=== PATIENT | female | born 1985 | race African-American/Black ===

== ENCOUNTER 2016-07-24 18:07 | Emergency (ER) | payer OTHER ==
[~2016-07-24] VITALS: Ht 165.1 cm; Wt 56.7 kg
[2016-07-24] MEDS ORDERED: IV NORMAL SALINE 1000ML BAG 1,000 ML IV SCH (18:19)
[2016-07-24] MEDS ORDERED: 0.9 % SODIUM CHLORIDE 10 ML DISP.SYRIN. IV PRN (18:30)
--- NOTE | 2016-07-24 18:32 | PHYS DOC ---
Past Medical History Past Medical History: Other Additional Past Medical Histor: PLEURISY Past Surgical History: No Surgical History Alcohol Use: None Drug Use: Marijuana Adult General Chief Complaint Chief Complaint: CHEST WALL PAIN HPI HPI Patient is a pleasant 31-year-old female with a remote history of pleurisy about 6 or 7 years ago who presents with chest pain that began earlier this morning. Pain is described as a sharp stabbing center of her chest over her xiphoid process readying to the center of his manubrium chest pain is worse with lifting moving her chest wall and moving her arms. Described as a sharp with no radiation to her back and shoulders or neck. Patient denies any shortness of breath, cough, URI symptoms, direct trauma, nausea, vomiting, diarrhea, fevers, chills, recent travel or trauma. Patient took some ibuprofen today which makes it somewhat better but not improved anxiety. She was advised to have an evaluation at the emergency department given the duration of symptoms. Review of Systems Review of Systems Constitutional: Denies fever or chills [] Eyes: Denies change in visual acuity, redness, or eye pain [] HENT: Denies nasal congestion or sore throat [] Respiratory: Patient truly denies shortness of breath other than when her chest wall hurts and she has to rest her bleeding secondary to the pain. Cardiovascular: No additional information not addressed in HPI [] GI: Denies abdominal pain, nausea, vomiting, bloody stools or diarrhea [] : Denies dysuria or hematuria [] Musculoskeletal: Denies back pain or joint pain [] Integument: Denies rash or skin lesions [] Neurologic: Denies headache, focal weakness or sensory changes [] Endocrine: Denies polyuria or polydipsia [] Current Medications Current Medications Current Medications Medications (Trade) Dose Ordered Sig/Sri Start Time Stop Time Status Last Admin Dose Admin Aspirin 324 mg 324 mg 1X ONCE 07/24/16 19:00 07/24/16 19:01 DC 07/24/16 18:48 324 MG Ketorolac Tromethamine (Toradol) 30 mg 1X ONCE 07/24/16 19:00 07/24/16 19:01 DC 07/24/16 18:51 30 MG Sodium Chloride (Iv Sodium Chloride 0.9% 1000ml Bag) 1,000 ml @ 1,000 mls/hr Q1H 07/24/16 18:19 07/24/16 19:18 DC 07/24/16 18:51 1,000 MLS/HR Sodium Chloride (Normal Saline Flush) 10 ml QSHIFT PRN 07/24/16 18:30 Allergies Allergies Allergies Coded Allergies Type Severity Reaction Last Updated Verified Sulfa (Sulfonamide Antibiotics) Allergy Intermediate Unknown 05/10/15 Yes Physical Exam Physical Exam Constitutional: Well developed, well nourished, no acute distress, non-toxic appearance. [] HENT: Normocephalic, atraumatic, bilateral external ears normal, oropharynx moist, no oral exudates, nose normal. [] Eyes: PERRLA, EOMI, conjunctiva normal, no discharge. [] Neck: Normal range of motion, no tenderness, supple, no stridor. [] Cardiovascular:Heart rate regular rhythm, no murmur [] Lungs & Thorax: Bilateral breath sounds clear to auscultation bilateral no wheezes rhonchi rales or crackles. Patient has easily reproducible chest wall pain over the sternum and xiphoid process exactly reproduce her symptoms. She has pain with rotational motion of her shoulder at the left more than the right. No evidence of skin wall changes no contusions, no rash. Abdomen: Bowel sounds normal, soft, no tenderness, no masses, no pulsatile masses. [] Skin: Warm, dry, no erythema, no rash. [] Back: No tenderness, no CVA tenderness. [] Extremities: No tenderness, no cyanosis, no clubbing, ROM intact, no edema. [] Neurologic: Alert and oriented X 3, normal motor function, normal sensory function, no focal deficits noted. [] Psychologic: Affect normal, judgement normal, mood normal. [] Current Patient Data Vital Signs Vital Signs Date Time Temp Pulse Resp B/P Pulse Ox O2 Delivery O2 Flow Rate FiO2 07/24/16 18:11 99 83 18 137/83 99 Room Air 99.0 Lab Values Laboratory Tests Test 07/24/16 17:39 07/24/16 18:49 POC Urine HCG, Qualitative Hcg negative (Negative) White Blood Count 12.1x10^3/uL (4.0-11.0) H Red Blood Count 4.48x10^6/uL (3.50-5.40) Hemoglobin 13.3g/dL (12.0-15.5) Hematocrit 40.3% (36.0-47.0) Mean Corpuscular Volume 90fL (79-100) Mean Corpuscular Hemoglobin 30pg (25-35) Mean Corpuscular Hemoglobin Concent 33g/dL (31-37) Red Cell Distribution Width 13.0% (11.5-14.5) Platelet Count 287x10^3/uL (140-400) Neutrophils (%) (Auto) 65% (31-73) Lymphocytes (%) (Auto) 22% (24-48) L Monocytes (%) (Auto) 10% (0-9) H Eosinophils (%) (Auto) 2% (0-3) Basophils (%) (Auto) 0% (0-3) Neutrophils # (Auto) 7.8x10^3uL (1.8-7.7) H Lymphocytes # (Auto) 2.7x10^3/uL (1.0-4.8) Monocytes # (Auto) 1.2x10^3/uL (0.0-1.1) H Eosinophils # (Auto) 0.3x10^3/uL (0.0-0.7) Basophils # (Auto) 0.0x10^3/uL (0.0-0.2) Prothrombin Time 12.6SEC (11.7-14.0) Prothrombin Time INR 1.0 (0.8-1.1) D-Dimer (Nola) 0.27ug/mlFEU (0.00-0.50) Sodium Level 136mmol/L (136-145) Potassium Level 3.9mmol/L (3.5-5.1) Chloride Level 103mmol/L (98-107) Carbon Dioxide Level 27mmol/L (21-32) Anion Gap 6 (6-14) Blood Urea Nitrogen 11mg/dL (7-20) Creatinine 0.7mg/dL (0.6-1.0) Estimated GFR (Cockcroft-Gault) 118.9 Glucose Level 91mg/dL (70-99) Calcium Level 9.1mg/dL (8.5-10.1) Creatine Kinase 94U/L (26-192) Creatine Kinase MB (Mass) < 0.5ng/mL (0.0-3.6) Creatine Kinase MB Relative Index 0.5% (0-4) Troponin I Quantitative < 0.017ng/mL (0.000-0.055) NG-Hfj-T-Type Natriuretic Peptide < 5pg/mL (0-124) Lipase 59U/L (73-393) L Laboratory Tests 07/24/16 18:49 Laboratory Tests 07/24/16 18:49 EKG EKG [EKG time 1618 p.m. 07/24/2016 shows normal sinus rhythm normal NJ interval and normal P wave number QRS normal ST segment, T-wave normal-looking EKG.] Radiology/Procedures Radiology/Procedures [Patient is x-ray dated 52 05/01/16 time 1841 normal cardiac shadow no acute pulmonary infiltrates lungs are inflated there is no soda Medicare there is no pleural effusions noted no pneumothorax subcutaneousair bony inferences and normal soft tissue and normal as well.] Course & Med Decision Making Course & Med Decision Making Pertinent Labs and Imaging studies reviewed. (See chart for details) [Patient presents with chest wall pain very reminiscent of her prior expensive pleurisy but her shortness of breath is low but more discomforting than normal. She has no risk factors for pulmonary embolism PERC negative but she does have some recent travel less than 6 hours in a vehicle. Differential diagnosis includes but is not entirely inclusive acute coronary syndrome, pulmonary medicine, pericardial effusion, pericardial tampon, mediastinitis, pneumothorax, ] Urine hCG was negative, patient's elevated white blood cell count of 12.1 and is really given duration of symptoms is blood cell count acute stress reaction to pain. Otherwise normal Pleuritis is an inflammation of the lung pleura and causes pleuritic chest pain. Causes include autoimmune diseases (eg, systemic lupus erythematosus) and drugs (eg, procainamide, hydralazine, isoniazid). Associated systemic signs and symptoms of autoimmune disease include fever, rash, arthralgias, and constitutional symptoms. She did not suffer any of these other symptoms,. Discussed ways to treat pleurisy to follow-up in the future. Dragon Disclaimer Dragon Disclaimer This electronic medical record was generated, in whole or in part, using a voice recognition dictation system. Departure Departure Impression: Primary Impression: Pleurisy Disposition: 01 HOME, SELF-CARE Condition: IMPROVED Referrals: UNKNOWN PCP NAME (PCP) Patient Instructions: Chest Pain (Nonspecific), Pleurisy Additional Instructions: You have been diagnosed with chest pain and pleurisy although there is no evidence of damage to her heart at this time this does not mean he did not have heart disease. Please return for any new or increasing symptoms or Any questions or concerns. I would advise a follow-up with your regular Dr. for outpatient evaluation if symptoms continue I would also discouraged the use of marijuana until you're seen. Scripts Naproxen Sodium 550 Mg [id number] Mg PO BID PRN PAIN #20 TAB Prov:TRINITY NICHOLS MD 07/24/16 TRINITY NICHOLS MD July 24, 2016 18:32
[2016-07-24] MEDS ORDERED: ASPIRIN CHEWABLE 81 MG TABLET. PO ONE (19:00)
[2016-07-24] MEDS ORDERED: KETOROLAC TROMETHAMINE 30 MG/ML INJ. IV ONE (19:00)
[2016-07-24 19:01] LABS: BASO % 0 % (0-3); EOS % 2 % (0-3); HEMATOCRIT 40.3 % (36.0-47.0); HEMOGLOBIN 13.3 g/dL (12.0-15.5); LYMPH # 2.7 x10^3/uL (1.0-4.8); LYMPH % 22 % (24-48); MEAN CORPUSCULAR HEMOGLOBIN 30 pg (25-35); MEAN CORPUSCULAR HGB CONC 33 g/dL (31-37); MEAN CORPUSCULAR VOLUME 90 fL (79-100); MONO % 10 % (0-9); NEUT % 65 % (31-73); PLATELET COUNT 287 x10^3/uL (140-400); RED BLOOD COUNT 4.48 x10^6/uL (3.50-5.40); WHITE BLOOD COUNT 12.1 x10^3/uL (4.0-11.0)
[2016-07-24 19:09] LABS: PROTHROMBIN TIME PATIENT 12.6 SEC (11.7-14.0)
[2016-07-24 19:12] LABS: CALCIUM 9.1 mg/dL (8.5-10.1); CREATININE 0.7 mg/dL (0.6-1.0); GFR 118.9; POTASSIUM 3.9 mmol/L (3.5-5.1)
[2016-07-24 19:25] LABS: CREATINE KINASE 94 U/L (26-192)
[2016-07-24 19:26] LABS: CKMB MASS < 0.5 ng/mL (0.0-3.6)
[2016-07-24 19:32] VITALS: BP 118/68
[2016-07-24] MEDS ORDERED: NAPR550T3 PO (19:45)
--- NOTE | 2016-07-25 06:50 | EKG ---
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
--- NOTE | 2016-07-25 08:13 | RAD ---
Indication chest pain. PA and lateral views of the chest were obtained. No prior imaging of the chest is available. The heart, pulmonary vessels and mediastinum appear normal. The lungs are clear. Bony structures appear grossly intact. IMPRESSION: Normal study
== END 2016-07-24 19:56 | disposition home or self-care (01) ==
LOC: ER 18:07
DX: R09.1 Pleurisy (principal); F12.10 Cannabis abuse, uncomplicated; Z88.2 Allergy status to sulfonamides
CPT/HCPCS: 36415; 71020; 80048; 82550; 82553; 83690; 83880; 84484; 84703; 85027; 85379; 85610; 93005; 96361; 96374; 99285; J1885; J7030; 81025

== ENCOUNTER 2019-10-31 07:23 | Emergency (ER) | payer OTHER ==
[~2019-10-31] VITALS: Ht 162.6 cm; Wt 60.0 kg
[~2019-10-31 07:23] MED LIST: NAPR-677 PO
--- NOTE | 2019-10-31 07:57 | PHYS DOC ---
Past Medical History Past Medical History: Asthma, Bronchitis, Other Additional Past Medical Histor: PLEURISY Past Surgical History: No Surgical History Smoking Status: Light Tobacco Smoker Alcohol Use: None Drug Use: Marijuana General Adult EDM: Chief Complaint: CHEST WALL PAIN HPI: HPI: Patient is a 34 year old female who presents with 3-week history of right-sided pleuritic chest pain pain is moderate in intensity and worse with deep breaths. Patient has some mild shortness of breath due to the pain. Pain is located on the right side of her chest and radiates from the back into the front. Patient denies any fever or cough. Patient was seen at [facility] a week and a half ago and diagnosed with pleurisy and placed on antibiotics. Patient states symptoms are not getting better. Patient's had off and on pleurisy for many years. Review of Systems: Review of Systems: Constitutional: Denies fever or chills. [] Eyes: Denies change in visual acuity. [] HENT: Denies nasal congestion or sore throat. [] Respiratory: Denies cough but has mild shortness of breath Cardiovascular: Complains of right-sided chest pain GI: Denies abdominal pain, nausea, vomiting, bloody stools or diarrhea. [] : Denies dysuria. [] Musculoskeletal: Complains of right thoracic pain Integument: Denies rash. [] Neurologic: Denies headache, focal weakness or sensory changes. [] Endocrine: Denies polyuria or polydipsia. [] Lymphatic: Denies swollen glands. [] Psychiatric: Denies depression or anxiety. [] Heart Score: HEART Score for Chest Pain: HEART Score for Chest Pain Response (Comments) Value History Slighlty/Non-Suspicious 0 ECG Normal 0 Age < 45 0 Risk Factors No Risk Factors 0 Troponin < Normal Limit 0 Total 0 Risk Factors: Risk Factors: DM, Current or recent (<one month) smoker, HTN, HLP, family history of CAD, obesity. Risk Scores: Score 0 - 3: 2.5% MACE over next 6 weeks - Discharge Home Score 4 - 6: 20.3% MACE over next 6 weeks - Admit for Clinical Observation Score 7 - 10: 72.7% MACE over next 6 weeks - Early Invasive Strategies Allergies: Allergies: Allergies Coded Allergies Type Severity Reaction Last Updated Verified Sulfa (Sulfonamide Antibiotics) Allergy Intermediate Unknown 05/10/15 Yes Physical Exam: PE: Constitutional: Well developed, well nourished, no acute distress, non-toxic appearance. [] HENT: Normocephalic, atraumatic, bilateral external ears normal, no trismus nose normal. [] Eyes: PERRLA, EOMI, conjunctiva normal, no discharge. [] Neck: Normal range of motion, no tenderness, supple, no stridor. [] Cardiovascular:Heart rate regular rhythm, peripheral pulses intact, cap refill normal Lungs & Thorax: Bilateral breath sounds clear, no respiratory distress Abdomen: soft, no tenderness, no masses, no pulsatile masses. [] Skin: Warm, dry, no erythema, no rash. [] Back: No tenderness, no CVA tenderness. [] Extremities: No tenderness, no cyanosis, no clubbing, ROM intact, no edema. [] Neurologic: Alert and oriented X 3, normal motor function, normal sensory function, no focal deficits noted. [] Psychologic: Affect normal, judgement normal, mood normal. [] Current Patient Data: Labs: Laboratory Tests Test 10/31/19 08:15 White Blood Count 6.2 x10^3/uL Red Blood Count 4.38 x10^6/uL Hemoglobin 13.1 g/dL Hematocrit 39.1 % Mean Corpuscular Volume 89 fL Mean Corpuscular Hemoglobin 30 pg Mean Corpuscular Hemoglobin Concent 34 g/dL Red Cell Distribution Width 12.7 % Platelet Count 317 x10^3/uL Neutrophils (%) (Auto) 55 % Lymphocytes (%) (Auto) 32 % Monocytes (%) (Auto) 11 % Eosinophils (%) (Auto) 2 % Basophils (%) (Auto) 1 % Neutrophils # (Auto) 3.4 x10^3/uL Lymphocytes # (Auto) 2.0 x10^3/uL Monocytes # (Auto) 0.7 x10^3/uL Eosinophils # (Auto) 0.1 x10^3/uL Basophils # (Auto) 0.0 x10^3/uL D-Dimer (Nola) < 0.27 ug/mlFEU Sodium Level 138 mmol/L Potassium Level 4.0 mmol/L Chloride Level 103 mmol/L Carbon Dioxide Level 27 mmol/L Anion Gap 8 Blood Urea Nitrogen 8 mg/dL Creatinine 0.9 mg/dL Estimated GFR (Cockcroft-Gault) 87.3 BUN/Creatinine Ratio 9 Glucose Level 98 mg/dL Calcium Level 8.8 mg/dL Total Bilirubin 0.5 mg/dL Aspartate Amino Transf (AST/SGOT) 13 U/L Alanine Aminotransferase (ALT/SGPT) 14 U/L Alkaline Phosphatase 66 U/L Troponin I Quantitative < 0.017 ng/mL LD-Och-Z-Type Natriuretic Peptide 21 pg/mL Total Protein 7.9 g/dL Albumin 3.8 g/dL Albumin/Globulin Ratio 0.9 Serum Test, Qualitative Negative Vital Signs: Vital Signs Date Time Temp Pulse Resp B/P (MAP) Pulse Ox O2 Delivery O2 Flow Rate FiO2 10/31/19 07:34 98.1 90 18 121/80 (94) 98 Room Air 98.1 EKG: EKG: [] EKG interpreted by me normal sinus rhythm with a rate of 77, normal axis normal intervals normal ST segments Radiology/Procedures: Radiology/Procedures: [][facility] [address] [place] [address] IMAGING REPORT Signed PATIENT: RHETT FAUST ACCOUNT: [id number] : 1985 LOCATION: ER AGE: 34 SEX: F EXAM STATUS: REG ER ORD. PHYSICIAN: ABELARDO CARCAMO MD REASON: R CP PROCEDURE: PORTABLE CHEST 1V PORTABLE CHEST 1V History: Reason: R CP / Spl. Instructions: / History: Comparison: July 24, 2016 Findings: No consolidation or pleural effusion. Normal heart size. No pneumothorax. Impression: 1. No acute cardiopulmonary process. Electronically signed by: Albert Waters DO (10/31/2019 8:14 AM) [facility] DICTATED and SIGNED BY: ALBERT WATERS DO DATE: 10/31/19813 Course & Med Decision Making: Course & Med Decision Making Pertinent Labs and Imaging studies reviewed. (See chart for details) [] 34-year-old female presents with subacute on chronic right-sided chest wall pain. Patient has atypical symptoms and normal EKG and normal troponin, doubt acute coronary syndrome. Patient has a negative d-dimer and stable vital signs, doubt pulmonary embolism. Most likely the patient has pleurisy. Patient was placed on steroids. Patient clinically stable for discharge and follow-up. Return precautions given. Conner Disclaimer: Conner Disclaimer: This electronic medical record was generated, in whole or in part, using a voice recognition dictation system. Departure Departure Impression: Primary Impression: Pleurisy Additional Impression: Right-sided chest pain Disposition: HOME, SELF-CARE Condition: STABLE Referrals: UNKNOWN PCP NAME (PCP) pcp 2-3 days Patient Instructions: Pleurisy Additional Instructions: EMERGENCY DEPARTMENT GENERAL DISCHARGE INSTRUCTIONS THANK YOU for coming to Emergency Department (ED) today and trusting us with your care. We trust that you had a positive experience in our Emergency Department. If you wish to speak to the department Management you can contact the psychology department chair at . YOUR FOLLOW UP INSTRUCTIONS ARE FOLLOWS: Do you have a private doctor? If you do not have a private doctor, please ask for a resource list of physicians or clinics that may be able to assist you with follow up care. The Emergency Physician has interpreted your x-rays. The X-ray specialist will also review them. If there is a change in the findings you will be notified in 48 hours when at all possible. A lab test or lab culture may have been done, your results will be reviewed and you will be notified if you need a change in treatment. ADDITIONAL INSTRUCTIONS AND INFORMATION Your care today has been supervised by a physician who is specially trained in emergency care. Many problems require more than one evaluation for a complete diagnosis and treatment. We recommend that you schedule your follow up appointment as recommended to ensure complete treatment of your illness or injury. If you are unable to obtain follow up care and continue to have a problem, or if your condition worsens we recommend that you return to the ED. We are not able to safely determine your condition over the phone nor are we able to give sound medical advice over the phone. For these safety reasons, if you call for medical advice we will ask you to come to the ED for further evaluation If you have any questions regarding these discharge instructions please call the ED at . SAFETY INFORMATION In the interest of safety, wellness, and injury prevention; we encourage you to wear your seatbelt, if you smoke; quit smoking, and we encourage your family to use protective helmet for bicycling and other sporting events that present an increased risk for head injury. IF YOUR SYMPTOMS WORSEN OR NEW SYMPTOMS DEVELOP, OR YOU HAVE CONCERNS ABOUT YOUR CONDITION; OR IF YOUR CONDITION WORSENS WHILE YOU ARE WAITING FOR YOUR FOLLOW UP APPOINTMENT; EITHER CONTACT YOUR PRIMARY CARE DOCTOR, THE PHYSICIAN WHOSE NAME AND NUMBER YOU WERE GIVEN, OR RETURN TO THE ED IMMEDIATELY. Scripts Prednisone (PREDNISONE) 20 Mg Tablet 60 MG PO DAILY, #15 TAB Prov: ABELARDO CARCAMO MD 10/31/19 Justicifation of Admission Dx: Justifications for Admission: Justification of Admission Dx: N/A ABELARDO CARCAMO MD Oct 31, 2019 07:56
--- NOTE | 2019-10-31 08:17 | RAD ---
PORTABLE CHEST 1V History: Reason: R CP / Spl. Instructions: / History: Comparison: July 24, 2016 Findings: No consolidation or pleural effusion. Normal heart size. No pneumothorax. Impression: 1. No acute cardiopulmonary process. Electronically signed by: Albert Waters DO (10/31/2019 8:14 AM) [facility]
[2019-10-31 08:28] LABS: BASO % 1 % (0-3); EOS # 0.1 x10^3/uL (0.0-0.7); EOS % 2 % (0-3); HEMATOCRIT 39.1 % (36.0-47.0); HEMOGLOBIN 13.1 g/dL (12.0-15.5); LYMPH % 32 % (24-48); MEAN CORPUSCULAR HEMOGLOBIN 30 pg (25-35); MEAN CORPUSCULAR HGB CONC 34 g/dL (31-37); MEAN CORPUSCULAR VOLUME 89 fL (79-100); MONO # 0.7 x10^3/uL (0.0-1.1); MONO % 11 % (0-9); NEUT # 3.4 x10^3/uL (1.8-7.7); NEUT % 55 % (31-73); PLATELET COUNT 317 x10^3/uL (140-400); RED BLOOD COUNT 4.38 x10^6/uL (3.50-5.40); RED CELL DISTRIBUTION WIDTH 12.7 % (11.5-14.5); WHITE BLOOD COUNT 6.2 x10^3/uL (4.0-11.0)
[2019-10-31 08:35] LABS: CALCIUM 8.8 mg/dL (8.5-10.1); CREATININE 0.9 mg/dL (0.6-1.0); GFR 87.3
[2019-10-31 08:42] LABS: ALBUMIN 3.8 g/dL (3.4-5.0); ALBUMIN/GLOBULIN RATIO 0.9 (1.0-1.7); TOTAL BILIRUBIN 0.5 mg/dL (0.2-1.0); TOTAL PROTEIN 7.9 g/dL (6.4-8.2)
[2019-10-31 08:57] LABS: PREG TEST PT QUAL NEGATIVE (NEG)
[2019-10-31] MEDS ORDERED: PRED20TA PO (09:04)
[2019-10-31 09:30] VITALS: BP 125/76
--- NOTE | 2019-11-03 05:19 | EKG ---
[facility] [address] [place] [address] Test Date: 2019-10-31 Test Time: 08:02:32 Pat Name: RHETT FAUST Department: Room: Gender: F [employer]: : 1985 Requested By: ABELARDO CARCAMO Order Number: [id number] Reading MD: Measurements Intervals [place] Rate: 77 P: 64 ID: [id number] QRS: 56 QRSD: 84 T: 64 QT: 374 QTc: 425 Interpretive Statements SINUS BRADYCARDIA AXIS ABNORMAL CONSIDERING AGE ABNORMAL ECG RI6.01 No previous ECG available for comparison
== END 2019-10-31 09:32 | disposition home or self-care (01) ==
LOC: ER 07:23
DX: R09.1 Pleurisy (principal); R07.81 Pleurodynia; R06.02 Shortness of breath; J45.909 Unspecified asthma, uncomplicated; F12.90 Cannabis use, unspecified, uncomplicated; Z87.891 Personal history of nicotine dependence; Z88.2 Allergy status to sulfonamides
CPT/HCPCS: 36415; 71045; 80053; 83880; 84484; 84703; 85025; 85379; 93005; 99285